=== PATIENT | male | born 2000 | race African-American/Black ===

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

== ENCOUNTER 2020-03-13 09:11 | Emergency (ER) | payer SELFPAY ==
[~2020-03-13] VITALS: Ht 165.1 cm; Wt 90.7 kg
[~2020-03-13 09:11] MED LIST changes: +OMEPRAZOLE MAGN20 MG PO
== END 2020-03-13 11:03 | disposition home or self-care (01) ==
LOC: ER 09:11
DX: R10.9 Unspecified abdominal pain (principal)
CPT/HCPCS: 99281

== ENCOUNTER 2021-01-04 17:39 | Emergency (ER) | payer OTHER ==
[~2021-01-04] VITALS: Ht 162.6 cm; Wt 86.2 kg
[2021-01-04] MEDS ORDERED: Pepcid20 MG PO (20:56)
[2021-01-04] MEDS ORDERED: ONDA4ODT MM (20:56)
== END 2021-01-04 21:04 | disposition home or self-care (01) ==
LOC: ER 17:39
DX: K27.9 Peptic ulcer, site unspecified, unspecified as acute or chronic, without hemorrhage or perforation (principal)
CPT/HCPCS: 99283; A9270

== ENCOUNTER 2021-08-11 09:56 | Emergency (ER) | payer OTHER ==
[~2021-08-11] VITALS: Ht 162.6 cm; Wt 77.1 kg
[~2021-08-11 09:56] MED LIST changes: +ONDA4ODT MM; +Pepcid20 MG PO
== END 2021-08-11 11:01 | disposition home or self-care (01) ==
LOC: ER 09:56
DX: S20.211A Contusion of right front wall of thorax, initial encounter (principal); X58.XXXA Exposure to other specified factors, initial encounter
CPT/HCPCS: 71101; 99283-25

== ENCOUNTER 2021-12-02 01:14 | Emergency (ER) | payer OTHER ==
[~2021-12-02] VITALS: Ht 162.6 cm; Wt 77.1 kg
== END 2021-12-02 02:50 | disposition home or self-care (01) ==
LOC: ER 01:14
DX: S90.01XA Contusion of right ankle, initial encounter (principal); F17.290 Nicotine dependence, other tobacco product, uncomplicated; W20.8XXA Other cause of strike by thrown, projected or falling object, initial encounter
CPT/HCPCS: 73610; 99283-25

== ENCOUNTER 2021-12-07 04:03 | Emergency (ER) | payer OTHER ==
[~2021-12-07] VITALS: Ht 162.6 cm; Wt 77.1 kg
[2021-12-07 04:41] LABS: BASOPHILS ABSOLUTE AUTO 0.04 K/mm3 (0.00-0.23); BASOPHILS PERCENT AUTO 1 % (0-2); EOSINOPHILS ABSOLUTE AUTO 0.12 K/mm3 (0.00-0.68); EOSINOPHILS PERCENT AUTO 2 % (0-6); Hematocrit 40.7 % (37.0-53.0); Hemoglobin 13.2 g/dL (13.5-17.5); IMMATURE GRAN ABSOLUTE AUTO 0.02 K/mm3 (0.00-0.10); IMMATURE GRAN PERCENT AUTO 0 % (0-1); LYMPHOCYTES ABSOLUTE AUTO 2.07 K/mm3 (0.84-5.20); LYMPHOCYTES PERCENT AUTO 26 % (21-46); MONOCYTES ABSOLUTE AUTO 0.73 K/mm3 (0.16-1.47); MONOCYTES PERCENT AUTO 9 % (4-13); Mean Corpuscular HGB 29.7 pg (26.0-34.0); Mean Corpuscular HGB Conc 32.4 g/dL (31.5-36.5); Mean Corpuscular Volume 92 fL (80-100); Mean Platelet Volume 10.9 fL (9.1-12.4); NEUTROPHILS ABSOLUTE AUTO 4.85 K/mm3 (1.96-9.15); NEUTROPHILS PERCENT AUTO 62 % (41-73); Platelet Count 202 K/mm3 (150-400); RDW Coefficient Variation 11.2 % (11.7-14.2); RDW Standard Deviation 37.8 fL (35.1-46.3); Red Blood Cell Count 4.45 M/mm3 (4.30-5.90); White Blood Cell Count 7.83 K/mm3 (4.00-11.30)
[2021-12-07 05:00] LABS: Alanine Aminotransfer (ALT/SGP 21 U/L (12-78); Albumin, Blood 4.3 g/dL (3.4-5.0); Albumin/Globulin Ratio 1.5 (0.8-1.8); Alk Phos 75 U/L (50-136); Anion Gap 4 mmol/L (6-16); Aspartate Aminotrans (AST/SGOT 15 U/L (12-37); Bilirubin, Total 0.6 mg/dL (0.1-1.0); Blood Urea Nitrogen 16 mg/dL (8-24); Bun/Creatinine Ratio 13.3 (12.0-20.0); CO2, Blood 27 mmol/L (21-32); Calcium, Blood 10.4 mg/dL (8.5-10.1); Chloride, Blood 109 mmol/L (98-108); Globulin, Blood 2.9 g/dL (2.2-4.0); Glomerular Filtration Rate >60 (60-); Glucose, Blood 107 mg/dL (70-99); Potassium, Blood 3.5 mmol/L (3.5-5.5); Sodium, Blood 140 mmol/L (136-145); Total Protein, Blood 7.2 g/dL (6.4-8.2)
[2021-12-07] MEDS ORDERED: PANT20 PO (05:27)
[2021-12-07] MEDS ORDERED: FAMO20 PO (05:27)
== END 2021-12-07 05:52 | disposition home or self-care (01) ==
LOC: ER 04:03
PROVIDERS: Student in an Organized Health Care Education/Training Program
DX: R11.2 Nausea with vomiting, unspecified (principal); R10.11 Right upper quadrant pain
CPT/HCPCS: 36415; 80053; 83690; 85025; 96374; 96375; 99284-25; A9270; C9113; J2405

== ENCOUNTER 2023-08-08 23:26 | Emergency (ER) | payer OTHER ==
[~2023-08-08] VITALS: Ht 165.1 cm; Wt 77.1 kg
[~2023-08-08 23:26] MED LIST changes: +FAMO20 PO; +PANT20 PO
[2023-08-09 00:11] LABS: Source, Urine Clean Catch
[2023-08-09 00:13] LABS: BASOPHILS ABSOLUTE AUTO 0.05 K/mm3 (0.00-0.23); BASOPHILS PERCENT AUTO 0 % (0-2); EOSINOPHILS ABSOLUTE AUTO 0.06 K/mm3 (0.00-0.68); EOSINOPHILS PERCENT AUTO 1 % (0-6); Hematocrit 36.2 % (37.0-53.0); Hemoglobin 11.9 g/dL (13.5-17.5); IMMATURE GRAN ABSOLUTE AUTO 0.04 K/mm3 (0.00-0.10); IMMATURE GRAN PERCENT AUTO 0 % (0-1); LYMPHOCYTES ABSOLUTE AUTO 1.42 K/mm3 (0.84-5.20); LYMPHOCYTES PERCENT AUTO 11 % (21-46); MONOCYTES ABSOLUTE AUTO 1.31 K/mm3 (0.16-1.47); MONOCYTES PERCENT AUTO 10 % (4-13); Mean Corpuscular HGB 30.7 pg (26.0-34.0); Mean Corpuscular HGB Conc 32.9 g/dL (31.5-36.5); Mean Corpuscular Volume 93 fL (80-100); Mean Platelet Volume 10.7 fL (9.1-12.4); NEUTROPHILS ABSOLUTE AUTO 9.92 K/mm3 (1.96-9.15); NEUTROPHILS PERCENT AUTO 78 % (41-73); Platelet Count 174 K/mm3 (150-400); RDW Coefficient Variation 11.5 % (11.7-14.2); RDW Standard Deviation 39.3 fL (35.1-46.3); Red Blood Cell Count 3.88 M/mm3 (4.30-5.90)
[2023-08-09 00:18] LABS: Bilirubin, Urine Neg (Neg); Blood, Urine Neg (Neg); Glucose Qualitative, Urine 2+ (Neg); Ketones, Urine 1+ (Neg); Leukocyte Esterase, Urine Neg (Neg); Nitrite, Urine Neg (Neg); Protein, Urine Neg (Neg); Urobilinogen, Urine NORM (Normal)
[2023-08-09 00:19] LABS: Appearance, Urine Clear (Clear); Color, Urine Pale Yellow (P-Yellow)
[2023-08-09 00:26] LABS: U Amphetamine Screen Not Detected; U Barbituate Screen Not Detected; U Benzodiazapine Screen Not Detected; U Buprenorphine Screen Not Detected; U Cannabinoids Screen DETECTED; U Cocaine Screen Not Detected; U Methadone Screen Not Detected; U Methamphetamine Screen Not Detected; U Opiates Screen Not Detected; U Oxycodone Screen Not Detected; U Phencyclidine Screen Not Detected; U Propoxyphene Screen Not Detected
[2023-08-09 00:36] LABS: Albumin, Blood 3.7 g/dL (3.4-5.0); Albumin/Globulin Ratio 1.5 (0.8-1.8); Bilirubin, Total 0.2 mg/dL (0.1-1.0); Bun/Creatinine Ratio 13.7 (12.0-20.0); Calcium, Blood 8.7 mg/dL (8.5-10.1); Creatinine, Blood 1.17 mg/dL (0.60-1.20); Globulin, Blood 2.5 g/dL (2.2-4.0); Potassium, Blood 3.2 mmol/L (3.5-5.5); Total Protein, Blood 6.2 g/dL (6.4-8.2)
[2023-08-09 01:15] VITALS: BP 153/87
[2023-08-10] MEDS ORDERED: CYCL10 PO (11:39)
[2023-08-10] MEDS ORDERED: ONDA4ODT MM (12:53)
== END 2023-08-09 02:15 | disposition home or self-care (01) ==
LOC: ER 23:26
PROVIDERS: Student in an Organized Health Care Education/Training Program
DX: F12.929 Cannabis use, unspecified with intoxication, unspecified (principal); R44.1 Visual hallucinations; R56.9 Unspecified convulsions; Z79.899 Other long term (current) drug therapy; F17.290 Nicotine dependence, other tobacco product, uncomplicated
CPT/HCPCS: 80053; 81003; 85025; 93005; 93010; 99284-25; A9270

== ENCOUNTER 2023-08-10 11:11 | Emergency (ER) | payer OTHER ==
[~2023-08-10] VITALS: Ht 165.1 cm; Wt 77.1 kg
[2023-08-10] MEDS ORDERED: CYCL10 PO (11:39)
[2023-08-10 11:56] LABS: BASOPHILS ABSOLUTE AUTO 0.03 K/mm3 (0.00-0.23); BASOPHILS PERCENT AUTO 0 % (0-2); EOSINOPHILS ABSOLUTE AUTO 0.04 K/mm3 (0.00-0.68); EOSINOPHILS PERCENT AUTO 0 % (0-6); Hematocrit 43.5 % (37.0-53.0); Hemoglobin 13.9 g/dL (13.5-17.5); IMMATURE GRAN ABSOLUTE AUTO 0.02 K/mm3 (0.00-0.10); IMMATURE GRAN PERCENT AUTO 0 % (0-1); LYMPHOCYTES ABSOLUTE AUTO 0.98 K/mm3 (0.84-5.20); LYMPHOCYTES PERCENT AUTO 11 % (21-46); MONOCYTES ABSOLUTE AUTO 0.63 K/mm3 (0.16-1.47); MONOCYTES PERCENT AUTO 7 % (4-13); Mean Corpuscular HGB 30.2 pg (26.0-34.0); Mean Corpuscular Volume 94 fL (80-100); NEUTROPHILS ABSOLUTE AUTO 7.31 K/mm3 (1.96-9.15); NEUTROPHILS PERCENT AUTO 81 % (41-73); Platelet Count 203 K/mm3 (150-400); RDW Coefficient Variation 11.5 % (11.7-14.2); RDW Standard Deviation 39.8 fL (35.1-46.3); Red Blood Cell Count 4.61 M/mm3 (4.30-5.90); White Blood Cell Count 9.01 K/mm3 (4.00-11.30)
[2023-08-10 12:29] LABS: Albumin, Blood 4.4 g/dL (3.4-5.0); Albumin/Globulin Ratio 1.3 (0.8-1.8); Bilirubin, Total 0.5 mg/dL (0.1-1.0); Calcium, Blood 9.5 mg/dL (8.5-10.1); Creatinine, Blood 1.18 mg/dL (0.60-1.20); Globulin, Blood 3.5 g/dL (2.2-4.0); Potassium, Blood 4.3 mmol/L (3.5-5.5); Total Protein, Blood 7.9 g/dL (6.4-8.2)
[2023-08-10] MEDS ORDERED: ONDA4ODT MM (12:53)
[2023-08-10 13:20] VITALS: BP 139/78
== END 2023-08-10 13:21 | disposition home or self-care (01) ==
LOC: ER 11:11
PROVIDERS: Physician Assistant
DX: R11.2 Nausea with vomiting, unspecified (principal); R00.2 Palpitations; F17.290 Nicotine dependence, other tobacco product, uncomplicated
CPT/HCPCS: 80053; 83690; 83735; 85025; 96361; 96374; 99284-25; J2405; J7030

== ENCOUNTER 2023-08-15 04:26 | Emergency (ER) | payer OTHER ==
[~2023-08-15] VITALS: Ht 162.6 cm; Wt 74.8 kg
[~2023-08-15 04:26] MED LIST changes: +CYCL10 PO
[2023-08-15] MEDS ORDERED: ONDA4ODT MM (07:21)
[2023-08-15 07:30] VITALS: BP 115/82
[2023-08-16] MEDS ORDERED: ONDA4ODT MM (03:54)
[2023-08-16] MEDS ORDERED: OMEP20ER PO (03:54)
== END 2023-08-15 07:36 | disposition home or self-care (01) ==
LOC: ER 04:26
DX: R51.9 Headache, unspecified (principal)
CPT/HCPCS: 93005; 93010; 96372; 99284-25; A9270; J1885

== ENCOUNTER 2023-08-16 00:19 | Emergency (ER) | payer OTHER ==
[~2023-08-16] VITALS: Ht 165.1 cm; Wt 74.8 kg
[2023-08-16] MEDS ORDERED: OMEP20ER PO (03:54)
[2023-08-16] MEDS ORDERED: ONDA4ODT MM (03:54)
[2023-08-16 03:57] VITALS: BP 139/78
[2023-08-17] MEDS ORDERED: HYDPAM50 PO (23:11)
== END 2023-08-16 03:59 | disposition home or self-care (01) ==
LOC: ER 00:19
DX: R10.13 Epigastric pain (principal); R11.2 Nausea with vomiting, unspecified; F12.90 Cannabis use, unspecified, uncomplicated; I10 Essential (primary) hypertension; F17.290 Nicotine dependence, other tobacco product, uncomplicated; Z79.899 Other long term (current) drug therapy
CPT/HCPCS: 96372; 99283-25; A9270; J1790

== ENCOUNTER 2023-08-17 19:30 | Emergency (ER) | payer OTHER ==
[~2023-08-17] VITALS: Ht 165.1 cm; Wt 74.8 kg
[~2023-08-17 19:30] MED LIST changes: +OMEP20ER PO
[2023-08-17 19:31] VITALS: BP 153/99
[2023-08-17] MEDS ORDERED: HYDPAM50 PO (23:11)
== END 2023-08-17 23:16 | disposition home or self-care (01) ==
LOC: ER 19:30
DX: F41.0 Panic disorder [episodic paroxysmal anxiety] (principal); F17.290 Nicotine dependence, other tobacco product, uncomplicated; Z79.899 Other long term (current) drug therapy
CPT/HCPCS: 99283; A9270